=== PATIENT | female | born 1975 | race Caucasian/White ===

== ENCOUNTER 2016-10-27 05:50 | Day surgery (SDC) | payer OTHER ==
[2016-10-25 09:40] LABS: BASOPHILS 0.5 % (0-2); EOSINOPHILS 2.4 % (0-7); HEMOGLOBIN 12.5 g/dL (12-16); IMMATURE GRANULOCYTES 0.3 % (0-5); LYMPHOCYTES 33.2 % (15-50); MCH 29.4 pg (26.0-34.0); MCHC 32.9 g/dL (31.0-37.0); MCV 89.4 fL (80.0-100.0); MEAN PLATELET VOLUME 10.6 fL (7.4-10.4); MONOCYTES 7.7 % (2-11); NEUTROPHILS 55.9 % (40-80); PLATELET COUNT 338 10x3/uL (130-400); RBC 4.25 10x6/uL (4.00-5.40); RDW 12.7 % (11.5-14.5); WBC 6.3 10x3/uL (4.8-10.8)
[2016-10-25 09:48] LABS: ANION GAP 14.5 mmol/L (8-16); CARBON DIOXIDE 26.3 mmol/L (21.0-32.0); POTASSIUM - SERUM 3.8 mmol/L (3.5-5.1)
[~2016-10-27] VITALS: Ht 157.5 cm; Wt 72.1 kg
[~2016-10-27 05:50] MED LIST: ADDERALL 10 MG10 MG PO; BUPROPION XL300 MG PO; XANAX0.5 MG PO
[2016-10-27 06:21] VITALS: Ht 157.5 cm; Wt 72.1 kg
[2016-10-27 06:47] LABS: HCG URINE POSITIVE (NEGATIVE)
== END 2016-10-27 10:05 | disposition home or self-care (01) ==
LOC: D.OPS 05:50 → D.PAN 07:30 → D.OPS 07:30
PROVIDERS: Obstetrics & Gynecology
DX: N92.0 Excessive and frequent menstruation with regular cycle (principal); Z01.812 Encounter for preprocedural laboratory examination